=== PATIENT | female | born 1960 | race Caucasian/White ===

== ENCOUNTER 2022-10-18 08:42 | Inpatient (IN) ==
[2022-10-18] MEDS ORDERED: ONDANSETRON 4 MG/2 ML VIAL IV ONE (09:16)
[2022-10-18] MEDS ORDERED: SODIUM CHLORIDE 0.9% 1,000 ML IV STA ×2 (09:16)
[2022-10-18] MEDS ORDERED: ACETAMINOPHEN 325 MG TABLET PO ONE (09:16)
[2022-10-18 09:45] LABS: Basophils % 0.3 % (0.0-0.8); Eosinophils % 0.2 % (0.00-10.9); Hematocrit 34.3 VOL% (35.7-47.0); Hemoglobin 11.2 GM/DL (12.0-16.0); Immature Granulocytes % 0.5 %; Immature Granulocytes Absolute 0.06 #; Lymphocytes # 0.9 10*3/uL (1.4-4.0); Lymphocytes % 7.8 % (21.3-54.2); Mean Corpuscular HGB Conc 32.7 GM/DL (32-36); Mean Corpuscular Volume 89.8 FL (87-102); Mean Platelet Volume 9.3 FL (9.6-12.0); Monocytes # 0.6 10*3/uL (0.11-0.8); Monocytes % 5.2 % (1.7-12.7); Platelet Count 339 T/CUMM (130-400); Red Blood Count 3.82 MC/CUMM (3.8-5.5); Red Cell Distribution Width 13.3 % (9.3-17.3)
[2022-10-18 09:55] LABS: Albumin 3.1 G/DL (3.4-5.0); Bilirubin,Total 0.5 MG/DL (0.20-1.00); Calcium 8.7 MG/DL (8.5-10.1); Osmolality,Calculated 269.4 MOS/KG (273-304); Potassium 3.2 MMOL/L (3.5-5.1); Total Protein 7.9 G/DL (6.4-8.2)
[2022-10-18 09:59] LABS: INR 1.1; PT Patient Result 11.9 SECS (10.1-12.1)
[2022-10-18] MEDS ORDERED: VANCOMYCIN INJ 1,000 MG in SODIUM CHLORIDE 0.9% 250 ML IV STA (10:41)
[2022-10-18] MEDS ORDERED: PIPERACILLIN/TAZOBACTAM 3,375 MG in SODIUM CHLORIDE 0.9% 100 ML IV STA (10:41)
[2022-10-18] MEDS ORDERED: KETOROLAC 30 MG/1 ML VIAL IV ONE (10:48)
[2022-10-18] MEDS ORDERED: POTASSIUM CHLORIDE 20 MEQ TABLET PO STA (11:19)
[2022-10-18] MEDS ORDERED: DOCUSATE SODIUM 100 MG CAPSULE PO PRN (11:27)
[2022-10-18] MEDS ORDERED: ONDANSETRON 4 MG/2 ML VIAL IV PRN (11:27)
[2022-10-18] MEDS ORDERED: ZALEPLON 5 MG CAPSULE PO PRN (11:27)
[2022-10-18] MEDS: SODIUM CHLORIDE 0.9% 1,000 ML IV SCH (12:15)
[2022-10-18] MEDS: ENOXAPARIN 40 MG/0.4 ML SYRINGE SUBCUT SCH (12:15)
[2022-10-18] MEDS: PANTOPRAZOLE 40 MG TABLET PO SCH (15:20)
[2022-10-18] MEDS: PIPERACILLIN/TAZOBACTAM 3,375 MG in SODIUM CHLORIDE 0.9% 100 ML IV SCH (20:39)
[2022-10-18] MEDS: clonazePAM 0.5 MG TABLET PO SCH (20:42)
[2022-10-18] MEDS: SIMVASTATIN 20 MG TABLET PO SCH (20:42)
[2022-10-19] MEDS: PIPERACILLIN/TAZOBACTAM 3,375 MG in SODIUM CHLORIDE 0.9% 100 ML IV SCH ×3 (03:43→18:32)
[2022-10-19] MEDS: SODIUM CHLORIDE 0.9% 1,000 ML IV SCH (03:45)
[2022-10-19] MEDS: VANCOMYCIN INJ 1,250 MG in SODIUM CHLORIDE 0.9% 250 ML IV SCH ×2 (05:51→22:30)
[2022-10-19 06:26] LABS: Basophils % 0.2 % (0.0-0.8); Eosinophils # 0.1 10*3/uL (0.0-0.87); Eosinophils % 0.9 % (0.00-10.9); Hematocrit 29.1 VOL% (35.7-47.0); Hemoglobin 9.2 GM/DL (12.0-16.0); Immature Granulocytes % 0.5 %; Immature Granulocytes Absolute 0.04 #; Lymphocytes # 0.9 10*3/uL (1.4-4.0); Lymphocytes % 10.5 % (21.3-54.2); Mean Corpuscular HGB Conc 31.6 GM/DL (32-36); Mean Platelet Volume 9.1 FL (9.6-12.0); Monocytes # 0.4 10*3/uL (0.11-0.8); Monocytes % 4.8 % (1.7-12.7); Neutrophils % 83.1 % (38.7-73.9); Platelet Count 293 T/CUMM (130-400); Red Blood Count 3.13 MC/CUMM (3.8-5.5); Red Cell Distribution Width 13.6 % (9.3-17.3); White Blood Count 8.5 T/CUMM (4-12)
[2022-10-19 06:53] LABS: Calcium 7.6 MG/DL (8.5-10.1); Osmolality,Calculated 278.5 MOS/KG (273-304); Potassium 3.5 MMOL/L (3.5-5.1); Thyroid Stimulating Hormone 2.49 uIU/ml (0.358-3.74)
[2022-10-19] MEDS: PANTOPRAZOLE 40 MG TABLET PO SCH (09:37)
[2022-10-19] MEDS: PARoxetine 20 MG TABLET PO SCH (09:37)
[2022-10-19] MEDS: ENOXAPARIN 40 MG/0.4 ML SYRINGE SUBCUT SCH (11:28)
[2022-10-19] MEDS: ACETAMINOPHEN 325 MG TABLET PO PRN ×3 (11:28→22:37)
[2022-10-19] MEDS: SIMVASTATIN 20 MG TABLET PO SCH (20:18)
[2022-10-19] MEDS: clonazePAM 0.5 MG TABLET PO SCH (20:18)
[2022-10-20] MEDS: PIPERACILLIN/TAZOBACTAM 3,375 MG in SODIUM CHLORIDE 0.9% 100 ML IV SCH ×3 (03:54→20:56)
[2022-10-20 06:14] LABS: Basophils % 0.2 % (0.0-0.8); Eosinophils # 0.1 10*3/uL (0.0-0.87); Eosinophils % 0.6 % (0.00-10.9); Hematocrit 27.6 VOL% (35.7-47.0); Hemoglobin 8.9 GM/DL (12.0-16.0); Immature Granulocytes % 0.7 %; Immature Granulocytes Absolute 0.06 #; Lymphocytes # 0.9 10*3/uL (1.4-4.0); Lymphocytes % 10.4 % (21.3-54.2); Mean Corpuscular HGB Conc 32.2 GM/DL (32-36); Mean Corpuscular Volume 91.7 FL (87-102); Mean Platelet Volume 9.3 FL (9.6-12.0); Monocytes # 0.5 10*3/uL (0.11-0.8); Neutrophils % 82.1 % (38.7-73.9); Platelet Count 313 T/CUMM (130-400); Red Blood Count 3.01 MC/CUMM (3.8-5.5); Red Cell Distribution Width 13.7 % (9.3-17.3); White Blood Count 8.9 T/CUMM (4-12)
[2022-10-20 06:48] LABS: Calcium 8.2 MG/DL (8.5-10.1); Potassium 3.4 MMOL/L (3.5-5.1)
[2022-10-20 06:56] LABS: Risk Ratio 3.48; VLDL Cholesterol 12.2 MG/DL
[2022-10-20 06:57] LABS: Folate 12.66 NG/ML (5.38-24.0)
[2022-10-20 06:59] LABS: % Iron Saturation 8.5 % (18-50)
[2022-10-20 07:13] LABS: Band Neutrophils 15 % (0-10); Lymphocytes 13 % (20-55); Metamyelocytes 1 %; Platelet Estimate Normal; Total Cells Counted 100
[2022-10-20 07:14] LABS: Anisocytosis Slight; Macrocytosis Slight
[2022-10-20] MEDS: PARoxetine 20 MG TABLET PO SCH (08:24)
[2022-10-20] MEDS: ACETAMINOPHEN 325 MG TABLET PO PRN ×2 (08:24→15:46)
[2022-10-20] MEDS: PANTOPRAZOLE 40 MG TABLET PO SCH (08:25)
[2022-10-20] MEDS: SODIUM CHLORIDE 0.9% 1,000 ML IV SCH ×2 (08:25→11:28)
[2022-10-20] MEDS ORDERED: POTASSIUM CHLORIDE 20 MEQ TABLET PO ONE (10:16)
[2022-10-20] MEDS: ENOXAPARIN 40 MG/0.4 ML SYRINGE SUBCUT SCH (12:17)
[2022-10-20] MEDS: CHOLECALCIFEROL 1,000 UNIT TABLET PO SCH (14:54)
[2022-10-20] MEDS ORDERED: FERRIC GLUCONATE COMPLEX 125 MG in SODIUM CHLORIDE 0.9% 100 ML IV ONE (15:00)
[2022-10-20] MEDS: VANCOMYCIN INJ 1,250 MG in SODIUM CHLORIDE 0.9% 250 ML IV SCH (17:26)
[2022-10-20] MEDS: clonazePAM 0.5 MG TABLET PO SCH (20:55)
[2022-10-20] MEDS: SIMVASTATIN 20 MG TABLET PO SCH (20:56)
[2022-10-21] MEDS: PIPERACILLIN/TAZOBACTAM 3,375 MG in SODIUM CHLORIDE 0.9% 100 ML IV SCH ×3 (05:08→21:27)
[2022-10-21] MEDS: VANCOMYCIN INJ 1,250 MG in SODIUM CHLORIDE 0.9% 250 ML IV SCH ×2 (05:15→18:19)
[2022-10-21 06:21] LABS: Basophils % 0.2 % (0.0-0.8); Eosinophils # 0.1 10*3/uL (0.0-0.87); Eosinophils % 1.6 % (0.00-10.9); Hematocrit 28.3 VOL% (35.7-47.0); Immature Granulocytes % 0.4 %; Immature Granulocytes Absolute 0.03 #; Lymphocytes # 0.9 10*3/uL (1.4-4.0); Lymphocytes % 9.9 % (21.3-54.2); Mean Corpuscular HGB Conc 31.8 GM/DL (32-36); Mean Corpuscular Volume 92.2 FL (87-102); Mean Platelet Volume 9.8 FL (9.6-12.0); Monocytes # 0.4 10*3/uL (0.11-0.8); Monocytes % 4.8 % (1.7-12.7); Neutrophils % 83.1 % (38.7-73.9); Platelet Count 325 T/CUMM (130-400); Red Blood Count 3.07 MC/CUMM (3.8-5.5); White Blood Count 8.6 T/CUMM (4-12)
[2022-10-21 06:38] LABS: Calcium 8.6 MG/DL (8.5-10.1); Osmolality,Calculated 274.5 MOS/KG (273-304); Potassium 3.1 MMOL/L (3.5-5.1)
[2022-10-21] MEDS: PARoxetine 20 MG TABLET PO SCH (08:44)
[2022-10-21] MEDS: CHOLECALCIFEROL 1,000 UNIT TABLET PO SCH (08:45)
[2022-10-21] MEDS: FERROUS SULFATE 325 MG TABLET PO SCH (08:45)
[2022-10-21] MEDS: PANTOPRAZOLE 40 MG TABLET PO SCH (08:47)
[2022-10-21] MEDS: ENOXAPARIN 40 MG/0.4 ML SYRINGE SUBCUT SCH (13:12)
[2022-10-21] MEDS ORDERED: MAGNESIUM SULF RIDER 4 GM/100 ML PREMIX IV PRN (16:12)
[2022-10-21] MEDS: MAGNESIUM SULF RIDER 2 GM/50 ML PREMIX IV PRN (16:18)
[2022-10-21] MEDS: POTASSIUM CHLORIDE 20 MEQ TABLET PO PRN ×3 (16:18→21:05)
[2022-10-21] MEDS: SIMVASTATIN 20 MG TABLET PO SCH (21:05)
[2022-10-21] MEDS: clonazePAM 0.5 MG TABLET PO SCH (21:05)
[2022-10-22] MEDS: POTASSIUM CHLORIDE 20 MEQ TABLET PO PRN (01:09)
[2022-10-22] MEDS: PIPERACILLIN/TAZOBACTAM 3,375 MG in SODIUM CHLORIDE 0.9% 100 ML IV SCH ×3 (05:25→21:11)
[2022-10-22 05:31] LABS: Basophils % 0.4 % (0.0-0.8); Eosinophils # 0.3 10*3/uL (0.0-0.87); Eosinophils % 3.1 % (0.00-10.9); Hematocrit 29.3 VOL% (35.7-47.0); Hemoglobin 9.3 GM/DL (12.0-16.0); Immature Granulocytes % 0.7 %; Immature Granulocytes Absolute 0.06 #; Lymphocytes # 0.9 10*3/uL (1.4-4.0); Lymphocytes % 10.2 % (21.3-54.2); Mean Corpuscular HGB Conc 31.7 GM/DL (32-36); Mean Platelet Volume 9.5 FL (9.6-12.0); Monocytes # 0.5 10*3/uL (0.11-0.8); Monocytes % 5.6 % (1.7-12.7); Platelet Count 337 T/CUMM (130-400); Red Blood Count 3.15 MC/CUMM (3.8-5.5); Red Cell Distribution Width 13.8 % (9.3-17.3); White Blood Count 8.4 T/CUMM (4-12)
[2022-10-22 05:50] LABS: Calcium 9.1 MG/DL (8.5-10.1); Osmolality,Calculated 280.3 MOS/KG (273-304); Potassium 4.1 MMOL/L (3.5-5.1)
[2022-10-22] MEDS: PANTOPRAZOLE 40 MG TABLET PO SCH (08:24)
[2022-10-22] MEDS: FERROUS SULFATE 325 MG TABLET PO SCH (08:24)
[2022-10-22] MEDS: CHOLECALCIFEROL 1,000 UNIT TABLET PO SCH (08:24)
[2022-10-22] MEDS: VANCOMYCIN INJ 1,250 MG in SODIUM CHLORIDE 0.9% 250 ML IV SCH ×2 (08:30→17:15)
[2022-10-22] MEDS: PARoxetine 20 MG TABLET PO SCH (09:15)
[2022-10-22] MEDS ORDERED: MIDAZOLAM 2 MG/2 ML VIAL ONE (10:26)
[2022-10-22] MEDS ORDERED: SEVOFLURANE 1 UNIT/15 MINUTE INH ONE ×3 (10:26→12:05)
[2022-10-22] MEDS ORDERED: DEXAMETHASONE 20 MG/5 ML VIAL ONE (10:26)
[2022-10-22] MEDS ORDERED: fentaNYL 100 MCG/2 ML VIAL ONE (10:26)
[2022-10-22] MEDS ORDERED: LIDOCAINE 2% 5 ML VIAL ONE (10:26)
[2022-10-22] MEDS ORDERED: propofoL 200 MG/20 ML VIAL IV ONE (10:26)
[2022-10-22] MEDS ORDERED: ONDANSETRON 4 MG/2 ML VIAL ONE (10:26)
[2022-10-22] MEDS ORDERED: LACTATED RINGERS 1,000 ML IV SCH (11:00)
[2022-10-22] MEDS ORDERED: PHENYLEPHRINE 1 MG/10 ML SYRINGE IV ONE (12:05)
[2022-10-22] MEDS: clonazePAM 0.5 MG TABLET PO SCH (17:50)
[2022-10-22] MEDS: SIMVASTATIN 20 MG TABLET PO SCH (21:11)
[2022-10-23 04:52] LABS: Basophils % 0.5 % (0.0-0.8); Eosinophils # 0.5 10*3/uL (0.0-0.87); Eosinophils % 7.8 % (0.00-10.9); Hematocrit 27.7 VOL% (35.7-47.0); Hemoglobin 8.7 GM/DL (12.0-16.0); Immature Granulocytes % 0.8 %; Immature Granulocytes Absolute 0.05 #; Lymphocytes % 15.4 % (21.3-54.2); Mean Corpuscular HGB Conc 31.4 GM/DL (32-36); Mean Corpuscular Volume 93.9 FL (87-102); Mean Platelet Volume 9.3 FL (9.6-12.0); Monocytes # 0.5 10*3/uL (0.11-0.8); Monocytes % 7.2 % (1.7-12.7); Neutrophils % 68.3 % (38.7-73.9); Platelet Count 368 T/CUMM (130-400); Red Blood Count 2.95 MC/CUMM (3.8-5.5); Red Cell Distribution Width 14.1 % (9.3-17.3); White Blood Count 6.3 T/CUMM (4-12)
[2022-10-23 05:18] LABS: Calcium 9.2 MG/DL (8.5-10.1); Osmolality,Calculated 279.3 MOS/KG (273-304); Potassium 3.8 MMOL/L (3.5-5.1)
[2022-10-23] MEDS: PIPERACILLIN/TAZOBACTAM 3,375 MG in SODIUM CHLORIDE 0.9% 100 ML IV SCH ×3 (05:30→21:32)
[2022-10-23] MEDS: CHOLECALCIFEROL 1,000 UNIT TABLET PO SCH (08:53)
[2022-10-23] MEDS: PARoxetine 20 MG TABLET PO SCH (08:53)
[2022-10-23] MEDS: FERROUS SULFATE 325 MG TABLET PO SCH (08:53)
[2022-10-23] MEDS: PANTOPRAZOLE 40 MG TABLET PO SCH (09:00)
[2022-10-23] MEDS: LACTATED RINGERS 1,000 ML IV SCH ×2 (09:44→21:31)
[2022-10-23] MEDS: clonazePAM 0.5 MG TABLET PO SCH (17:57)
[2022-10-23] MEDS: SIMVASTATIN 20 MG TABLET PO SCH (21:32)
[2022-10-24] MEDS ORDERED: SODIUM HYPOCHLORITE 0.25% IRRIG 473 ML BOTTLE TOP PRN ×2 (05:07→05:08)
[2022-10-24] MEDS: PIPERACILLIN/TAZOBACTAM 3,375 MG in SODIUM CHLORIDE 0.9% 100 ML IV SCH ×3 (05:11→21:00)
[2022-10-24] MEDS: LACTATED RINGERS 1,000 ML IV SCH ×2 (05:11→16:34)
[2022-10-24 05:24] LABS: Basophils % 0.4 % (0.0-0.8); Eosinophils # 0.5 10*3/uL (0.0-0.87); Eosinophils % 7.6 % (0.00-10.9); Hematocrit 27.8 VOL% (35.7-47.0); Hemoglobin 8.7 GM/DL (12.0-16.0); Immature Granulocytes % 0.9 %; Immature Granulocytes Absolute 0.06 #; Lymphocytes # 0.9 10*3/uL (1.4-4.0); Lymphocytes % 13.5 % (21.3-54.2); Mean Corpuscular HGB Conc 31.3 GM/DL (32-36); Mean Corpuscular Volume 94.6 FL (87-102); Mean Platelet Volume 9.4 FL (9.6-12.0); Monocytes # 0.5 10*3/uL (0.11-0.8); Monocytes % 7.5 % (1.7-12.7); Neutrophils % 70.1 % (38.7-73.9); Platelet Count 372 T/CUMM (130-400); Red Blood Count 2.94 MC/CUMM (3.8-5.5); Red Cell Distribution Width 13.9 % (9.3-17.3); White Blood Count 6.9 T/CUMM (4-12)
[2022-10-24 05:40] LABS: Calcium 8.7 MG/DL (8.5-10.1); Potassium 4.1 MMOL/L (3.5-5.1)
[2022-10-24] MEDS: PANTOPRAZOLE 40 MG TABLET PO SCH (09:34)
[2022-10-24] MEDS: PARoxetine 20 MG TABLET PO SCH (09:34)
[2022-10-24] MEDS: MAGNESIUM SULF RIDER 2 GM/50 ML PREMIX IV PRN (09:34)
[2022-10-24] MEDS: CHOLECALCIFEROL 1,000 UNIT TABLET PO SCH (09:35)
[2022-10-24] MEDS: FERROUS SULFATE 325 MG TABLET PO SCH (09:35)
[2022-10-24] MEDS: clonazePAM 0.5 MG TABLET PO SCH (17:11)
[2022-10-24] MEDS: SIMVASTATIN 20 MG TABLET PO SCH (20:55)
[2022-10-25] MEDS: LACTATED RINGERS 1,000 ML IV SCH (01:25)
[2022-10-25] MEDS: PIPERACILLIN/TAZOBACTAM 3,375 MG in SODIUM CHLORIDE 0.9% 100 ML IV SCH (05:23)
[2022-10-25] MEDS: CHOLECALCIFEROL 1,000 UNIT TABLET PO SCH (08:59)
[2022-10-25] MEDS: PANTOPRAZOLE 40 MG TABLET PO SCH (08:59)
[2022-10-25] MEDS: FERROUS SULFATE 325 MG TABLET PO SCH (08:59)
[2022-10-25] MEDS: PARoxetine 20 MG TABLET PO SCH (08:59)
[2022-10-25 11:35] VITALS: BP 109/73
[2022-10-25] MEDS ORDERED: AMOXICILLIN 875 MG TABLET PO SCH (14:00)
== END 2022-10-25 14:40 | disposition home health service (06) | DRG 580 ==
LOC: N.ED 08:42 → N.EDINP 10:55 → SUATTDRO 10:55 → N.3E 11:26
PROVIDERS: ADMIT Hospitalist; ATTEND Internal Medicine